=== PATIENT | male | born 1990 | race Caucasian/White ===

== ENCOUNTER 2024-07-18 23:48 | Emergency (ER) | payer OTHER ==
[~2024-07-18] VITALS: Ht 177.8 cm; Wt 129.3 kg
[2024-07-18 23:56] VITALS: BP 145/84; TEMP 98.5; O2SAT 97
== END 2024-07-19 02:12 | disposition home or self-care (01) ==
LOC: ER 23:52
DX: Z02.89 Encounter for other administrative examinations (principal)